=== PATIENT | female | born 1995 | race Two or more races ===

== ENCOUNTER 2022-04-12 07:19 | Emergency (ER) | payer OTHER ==
[~2022-04-12] VITALS: Ht 160 cm; Wt 60.8 kg
[~2022-04-12 07:19] MED LIST: AMOX-CLAV 875-1 EAC1 PO
== END 2022-04-12 12:02 | disposition home or self-care (01) ==
LOC: ER 07:19
DX: O46.91 Antepartum hemorrhage, unspecified, first trimester (principal); Z3A.01 Less than 8 weeks gestation of pregnancy; Z91.013 Allergy to seafood

== ENCOUNTER 2022-11-25 06:19 | Inpatient (IN) | payer OTHER ==
[~2022-11-25] VITALS: Ht 160 cm; Wt 3.2 kg
[2022-11-25] MEDS ORDERED: PRENATE ELITE1 EAC1 PO (09:25)
== END 2022-11-28 14:20 | disposition home or self-care (01) | DRG 788 ==
LOC: LDR 06:19 → OB/GYN 15:09
PROVIDERS: ADMIT Obstetrics & Gynecology; ATTEND Obstetrics & Gynecology
PROC: 4A1HXCZ Monitoring of Products of Conception, Cardiac Rate, External Approach (ICD-10-PCS; 2022-11-25)
PROC: 10D00Z1 Extraction of Products of Conception, Low, Open Approach (ICD-10-PCS; principal; 2022-11-25 18:00)
DX: O69.0XX0 Labor and delivery complicated by prolapse of cord, not applicable or unspecified (principal); Z3A.39 39 weeks gestation of pregnancy; Z37.0 Single live birth; Z20.822 Contact with and (suspected) exposure to COVID-19

== ENCOUNTER 2023-11-21 23:28 | Emergency (ER) | payer OTHER ==
[~2023-11-21] VITALS: Ht 160 cm; Wt 68.0 kg
[~2023-11-21 23:28] MED LIST changes: +PRENATE ELITE1 EAC1 PO
[2023-11-22] MEDS ORDERED: KETOROLAC TROMETHAMINE 60 MG VIAL IM STA (01:15)
[2023-11-22] MEDS ORDERED: KETOROLAC TROMETHAMINE 60 MG VIAL IM ONE (01:27)
[2023-11-22] MEDS ORDERED: KETO10TA2 PO (01:44)
== END 2023-11-22 01:54 ==
LOC: ER 23:29
DX: S93.491A Sprain of other ligament of right ankle, initial encounter (principal); X50.1XXA Overexertion from prolonged static or awkward postures, initial encounter; Y93.89 Activity, other specified; Y92.89 Other specified places as the place of occurrence of the external cause; Z91.013 Allergy to seafood; Z91.018 Allergy to other foods; Z91.041 Radiographic dye allergy status; J45.909 Unspecified asthma, uncomplicated